=== PATIENT | female | born 1940 | race Caucasian/White ===

== ENCOUNTER → 2022-01-04 | Outpatient (CLI) | payer MEDICARE, OTHER, SELFPAY ==
--- NOTE | 2022-01-04 14:15 | CT_ITS ---
EXAM: CT LEFT UPPER EXTREMITY WITHOUT INTRAVENOUS CONTRAST CLINICAL INDICATION: SHOULDER TRAUMA Fell two weeks ago, pre op shoulder planning. TECHNIQUE: Helically acquired images were obtained of the left upper extremity without intravenous contrast. 2-D reformats were performed by the technologist. This CT exam was performed using one or more of the following dose reduction techniques: automated exposure control, adjustment of the mA and/or kV according to patient size, and/or use of iterative reconstruction technique. This report was created using [employer] technology. RADIATION DOSE: CTDIvol = 23.36 mGy, DLP = 551.57 mGy-cm COMPARISON: None. FINDINGS: BONES/JOINTS: Comminuted fracture of the proximal left humerus. Degenerative findings of the AC joint. Elevated left humeral head with eburnation of the acromion suggest a chronic rotator cuff tear. SOFT TISSUES: Unremarkable. No soft tissue swelling or gas. No radiopaque foreign body. LUNGS AND PLEURAL SPACES: Small left pleural effusion. CT/Extremity Upper without Contra IMPRESSION: 1. Comminuted fracture of the proximal left humerus. 2. Small left pleural effusion. Electronically Signed: Tip Calles MD at 16:38 EDT ,
== END | disposition home or self-care (01) ==
LOC: PSN 14:07 → CT 14:16
PROVIDERS: Visit Provider Student in an Organized Health Care Education/Training Program
DX: Z01.812 Encounter for preprocedural laboratory examination (principal); S42.292A Other displaced fracture of upper end of left humerus, initial encounter for closed fracture; W19.XXXA Unspecified fall, initial encounter; J90 Pleural effusion, not elsewhere classified
CPT/HCPCS: 73200

== ENCOUNTER 2022-01-20 05:27 | Day surgery (SDC) | payer MEDICARE, OTHER, SELFPAY ==
--- NOTE | 2022-01-04 14:20 | EKG12_ITS ---
Test Reason : PREOP Blood Pressure : / mmHG Vent. Rate : 079 BPM Atrial Rate : 074 BPM P-R Int : 000 ms QRS Dur : 082 ms QT Int : 368 ms P-R-T Axes : 000 009 -06 degrees QTc Int : 421 ms Atrial fibrillation Abnormal ECG Confirmed by WERNER ESCALANTE, DIALLO ([id number]), book or script editor MAT MARTINEZ ([id number]) on 01/05/2022 9:59:25 AM Referred By: DARIN Confirmed By:DIALLO CALDERA MD
--- NOTE | 2022-01-04 14:53 | RAD_ITS ---
STUDY: X-RAY CHEST REASON FOR EXAM: Female, 81 years old. PRE OP TECHNIQUE: PA and lateral views of the chest. COMPARISON: None. FINDINGS: There is hyperinflation of the lungs consistent with chronic obstructive lung disease (COPD). There is no demonstrated pleural abnormality. There is moderate cardiac enlargement. Normal mediastinum and floresita. Normal visualized pulmonary arteries. Normal visualized aortic arch and descending thoracic aorta. Normal visualized thoracic spine. Normal visualized ribs, clavicles, and shoulders. There is no demonstrated abnormality of the visualized soft tissue structures of the upper abdomen. RAD/Chest PA and Lateral IMPRESSION: Emphysema without pneumonia or atelectasis. Electronically Signed: Jonatan Romero MD at 15:12 EDT ,
[2022-01-04 15:44] LABS: Absolute Neutrophil Count 4.9 X10^3/uL (2.0-7.7); Basophil# 0.06 X10^3/uL; Basophil% 0.8 % (0-1); Eosinophil# 0.17 X10^3/uL; Eosinophils% 2.2 % (0-5); Hematocrit 32.8 % (37-47); Hemoglobin 9.6 g/dL (12.0-15.0); Lymphocyte % 19.6 % (19-41); Mean Corp Hgb Conc 29.3 g/dL (32-36); Mean Corpuscular Hgb 32.8 pg (27.0-32.0); Mean Corpuscular Volume 111.9 fL (81-99); Mean Platelet Vol. 9.4 fl (6.2-12.0); NRBC Flagged by Analyzer 0 % (0-5); Neutrophil # 4.91 X10^3/uL (2.7-7.7); POSITIVE MORPHOLOGY YES; Platelet Count 358 K/mm3 (150-450); Red Blood Count 2.93 M/mm3 (4.2-5.4); White Blood Count 7.7 K/mm3 (4.4-11.0)
[2022-01-04 15:46] LABS: Differential Indicated SCAN CRITERIA MET
[2022-01-04 16:08] LABS: Anion Gap 5 (5-15); BUN 27 mg/dL (7-18); BUN/Creat Ratio 40.1 RATIO (10-20); Calcium,Total 8.5 mg/dL (8.5-10.1); Chloride 109 mmol/L (98-107); Creatinine, Serum 0.67 mg/dL (0.55-1.02); EST Glomerular Filtration Rate 89 mL/min (>60); Est Glom Filt Rate - Afr Amer 108 mL/min (>60); Glucose 92 mg/dL (74-106); Potassium 4.5 mmol/L (3.5-5.1); Sodium Level 138 mmol/L (136-145)
[2022-01-04 18:30] LABS: Anisocytosis 1+
[2022-01-07 14:26] LABS: Magnesium 2.3 mg/dL (1.6-2.6)
[2022-01-20] VITALS (8 sets, daily range): BP systolic 135–171; BP diastolic 74–103; PULSE 89–110; RESP 14–16; TEMP 36.2–36.8; O2SAT 91–98; BMI 32.8
[2022-01-20 06:06] LABS: INR Fingerstick 1.1; Prothrombin Time Fingerstick 14.3 SEC (11.7-14.9)
[2022-01-20] MEDS: Acetaminophen 500 MG Tablet 1000 MG PO (07:00)
[2022-01-20] MEDS: Gabapentin 600 MG Tablet PO (07:00)
[2022-01-20 07:06] LABS: Bedside Glucose 98 mg/dL (74-106)
[2022-01-20] MEDS: Cefazolin 2 GM in 0.9% Normal Saline 100 ML IV (07:28)
[2022-01-20] MEDS: Lactated Ringers 1,000 ML 15 ML IV (08:28)
--- NOTE | 2022-01-20 08:44 | PCM.DC ---
Discharge Instructions Follow Up Care Test Results: Test results from this visit will be discussed in further detail at your follow-up appointment, if applicable. Discharge Plan Admission Primary Reason for Your Visit: Left shoulder replacement Attending Provider: Osito Farmer Primary Care Provider: Johana Santoro Instructions Additional Instructions / Restrictions: Take antifungal medication and apply powder to left armpit and under left breast as prescribed Discharge Orders/Prescriptions Prescriptions: New nystatin 100,000 unit/gram powder 1 applic topical BID Qty: 15 RF: 0 fluconazole 150 mg tablet 150 mg PO Q3D Qty: 2 RF: 0 Continued acetaminophen [Tylenol] 325 mg Tablet 650 mg PO Q6H PRN (Reason: Pain) RF: 0 lorazepam 0.5 mg Tablet 0.5 mg PO DAILY PRN (Reason: Anxiety) RF: 0 metoprolol tartrate 50 mg Tablet 50 mg PO QHS RF: 0 multivitamin Capsule 1 cap PO DAILY RF: 0 oxycodone 5 mg Tablet 5 mg PO Q6H PRN (Reason: Pain) RF: 0 Held warfarin 5 mg Tablet 5 mg PO DAILY RF: 0 Hold Instructions: Resume on 01/28/22. Referrals / Follow Up: Johana Santoro MD [Primary Care Provider] - Osito Farmer DO [STAFF PHYSICIAN] - 01/26/22 Disposition Disposition (needs filled in before D/C Order can be placed): Home, Self Care
--- NOTE | 2022-01-20 08:45 | PN.ORTHO_ITS ---
Subjective Subjective Patient was brought to the operative suite after interscalene block. General anesthesia was induced and endotracheal tube placed. Patient had a run of A. fib RVR which responded well to IV medication. While the patient was asleep, I examined her left upper extremity, with attention to the left axilla. Severe ca ndidiasis was noted, as well as under the left breast. This was not visualized due to the acute fracture. I made the decision to postpone the procedure until candidiasis is treated. Plan to discharge the patient on oral Diflucan and topical nystatin powder. Patient has been off her Coumadin for 6 days. I am awaiting callback from her primary care physician regarding anticoagulation management, with hopes to reschedule surgery 1 week from today. Objective Data Objective Data Vital Signs: Vital Signs Temp Pulse Resp BP Pulse Ox 98.3 F 101 H 16 148/81 H 98 01/20/22 06:35 01/20/22 06:35 01/20/22 06:35 01/20/22 06:35 01/20/22 06:35 Oxygen Delivery Method Room Air Weight: 156 lb 15.506 oz Body Mass Index (BMI) 32.8 Intake & Output: Intake and Output for Last 24 Hours 01/18/22 01/19/22 01/20/22 23:59 23:59 23:59 Intake Total 110 / 110 Balance 110 / 110 Lab / Micro Data Result Diagrams: 01/04/22 15:06 01/04/22 15:06 Labs: Laboratory Results - last 24 hr 01/20/22 06:00: POC PT 14.3, INR 1.1 01/20/22 06:10: Blood Type AB POSITIVE, Antibody Screen NEGATIVE 01/20/22 06:19: POC Glucose 98 Micro: Microbiology 01/04/22 15:06 Swab (Method) Nasal Screen MRSA/MSSA - Final
[2022-01-20] MEDS: Metoprolol Tartrate 50 MG Tablet PO (09:09)
--- NOTE | 2022-01-20 10:15 | SUR.PHASEII ---
Patient and family educated on discharge and all questions answered. Family to receive call from Dr. Farmer's office regarding blood thinner bridge until surgery. Family agrees and is aware.
--- NOTE | 2022-01-22 07:26 | PCM.OPRPT ---
Report of Operation Date of Procedure: 01/20/22 Description of Surgical Findings:: Preoperative diagnosis: Left four-part proximal humerus fracture Postoperative diagnosis: Left four-part proximal humerus fracture, axillary candidiasis Procedure: None Description of procedure: Patient was seen in the preoperative holding area. All questions were answered to patient satisfaction. Informed consent was confirmed for a left reverse shoulder arthroplasty. She was taken to the preoperative holding area and an interscalene block was administered. Patient tolerated the block well. She was brought to the operative suite at time of her procedure. General anesthesia was induced and endotracheal tube placed. Prior to positioning for surgery, patient went to atrial fibrillation with rapid ventricular response. She responded well to medications after several minutes. Her heart rate had normalized to where she was at upon admission around 100. During this process, I was able to better evaluate her left upper extremity, as she did have a pre-existing fracture. Severe candidiasis was noted in the axillary fold as well as beneath the left breast. Given the infection is a contradiction to surgery, surgery was canceled at this point. Patient was safely extubated in the operative suite and transferred to her gurney and subsequently to PACU in stable condition. Patient was started on p.o. Diflucan and topical nystatin powder. She was advised to remove her sling is much as possible for axillary skin care. She will follow-up with me in the office next Monday for skin check with hopes to reschedule surgery 01/27/2022, given the acuity with the acute fracture.
== END 2022-01-20 10:28 | disposition home or self-care (01) ==
LOC: SDC 05:28 → AC 05:29
PROVIDERS: Anesthesiology; PCP Internal Medicine; Referring Provider Student in an Organized Health Care Education/Training Program; Visit Provider Student in an Organized Health Care Education/Training Program
PROC: (CPT 23472; principal; 2022-01-20 07:00)
DX: I48.91 Unspecified atrial fibrillation (principal); S42.242A 4-part fracture of surgical neck of left humerus, initial encounter for closed fracture; Z96.612 Presence of left artificial shoulder joint; W10.9XXA Fall (on) (from) unspecified stairs and steps, initial encounter; E78.00 Pure hypercholesterolemia, unspecified; Z99.3 Dependence on wheelchair; Z53.09 Procedure and treatment not carried out because of other contraindication; B37.89 Other sites of candidiasis
CPT/HCPCS: 23472; 36415; 36416; 71046; 80048; 82962; 83735; 85025; 85610; 86850; 86900; 86901; 87081; 93005; J7120; J0153; J2405; J3475

== ENCOUNTER 2022-01-27 09:59 | Observation (INO) | payer MEDICARE, OTHER, SELFPAY ==
[2022-01-27] VITALS (18 sets, daily range): BP systolic 108–181; BP diastolic 66–137; PULSE 66–98; RESP 14–18; TEMP 36.2–37.2; O2SAT 95–100; BMI 31.7
[2022-01-27] MEDS: Gabapentin 600 MG Tablet PO (06:31)
[2022-01-27] MEDS: Acetaminophen 500 MG Tablet 1000 MG PO ×3 (06:31→21:44)
[2022-01-27] MEDS: Lactated Ringers 1,000 ML 125 ML IV ×2 (06:31→15:41)
--- NOTE | 2022-01-27 07:30 | SHO_PTH ---
PATIENT: SANDRA RAMON LOC: MS3 U#:[id number] AGE/SX: 81/F ROOM: [facility] RE01/27/[address]: Dr. Osito Farmer DO : 1940 BED: 1 DIS: 01/28/2022 SPEC #: [id number] RECD: 01/27/22 14:12 STATUS: JESSICA REJasiel #: [id number] JESSIE: 01/27/22 07:[address]: Osito Farmer DEPT: SURGICAL PATHOLOGY RECD BY: Zaida Boyd ENTERED: 01/28/22 07:56 SP TYPE: HUMERUS OTHR DR: MD Dr. Vito Subramanian DO Dr. Nana Yaa Koram, MD Tissues: Humerus, NOS Procedures: Decalcification bone/plaque Surgery Specimen Level IV HEADER OPERATION: ERAS, total shoulder replacement, reverse PRE-OP DIAGNOSIS: Four-part fracture of surgical neck of left humerus TISSUE SUBMITTED: Left proximal humerus MICROSCOPIC DIAGNOSIS Left humerus, total shoulder replacement: Severe degenerative joint disease. Consistent with organizing fracture callus. AM:kimberley 02/02/2022 MICROSCOPIC DESCRIPTION Slides are reviewed. GROSS DESCRIPTION Received in fixative is one container labeled with the patient's name and designated left proximal humerus. The specimen consists of a discoid fragment of justice bone measuring 4.5 x 4.5 x 2 cm. The articular surface displays prominent osteophyte formation, eburnation and bone erosion. Also present in the specimen container are multiple irregular fragments of light justice-white bone fragments measuring in aggregate 3.5 x 3 x 0.2 cm. Shift Supervisor sections are submitted in two cassettes as follows: 1??fragments of bone free in container, 2 ? discoid fragment of bone. The blocks are submitted after appropriate decalcification. / AM:kimberley 01/28/2022 TC:5 CPT: 28113, 99113
[2022-01-27 07:40] LABS: INR Fingerstick 1.7; Prothrombin Time Fingerstick 20.1 SEC (11.7-14.9)
[2022-01-27] MEDS: Cefazolin 2 GM in 0.9% Normal Saline 100 ML IV (07:50)
[2022-01-27] MEDS: TXA 1000mg in NS100 100ml (IVPB at Incision) 660 MG IV (08:10)
[2022-01-27 08:45] LABS: Bedside Glucose 98 mg/dL (74-106)
--- NOTE | 2022-01-27 10:14 | PCM.OPRPT ---
Report of Operation Date of Procedure: 01/27/22 Description of Surgical Findings:: Preoperative diagnosis: Left displaced 4 part proximal humerus fracture Postoperative diagnosis: Left displaced 4 part proximal humerus fracture Procedure: Left reverse total shoulder arthroplasty Surgeon: Osito Farmer DO Package Liner: UGO Mcgrath Anesthesia: General endotracheal Anesthesiologist: Dr. Reddy [place]: Justin Azar CRNA Complications: None apparent Drains: None Estimated blood loss: 250 cc Urinary output: None cc IV fluids: 400 cc crystalloid Specimens: None Surgical implants: Tornier perform reversed standard baseplate 25 mm diameter, standard glenosphere cobalt chrome 36 mm diameter. Tornier flex shoulder system reversed tray thickness +6 mm high E centricity, long PTC humeral stem angle 4B 132.5 degree, flex reverse insert thickness +6 mm ultrahigh weight molecular weight polyethylene angle C7 0.5 degree 36 mm diameter. Central screw 30 mm. Peripheral screws x3 22 mm, 26 mm, 14 mm Surgical indications: This is a 81-year-old female who had a fall and sustained a left four-part proximal humerus fracture. She was seen in the emergency department and follow-up in my office. CT was obtained confirming the diagnosis. Given the CT findings and her age, I recommended a reverse shoulder arthroplasty. We discussed nonoperative management versus reverse shoulder arthroplasty. The risk, benefits, alternatives the procedure was reviewed with the patient and she agreed to proceed. Risks included but were not limited to bleeding, infection, instability, loss of life or limb, risk of anesthesia, neurovascular injury, persistent pain, stiffness, prolonged immobilization, need for additional surgery, loosening of orthopedic hardware, nonhealing of tuberosities. She expressed understanding and wished to proceed with surgery. She was cleared by her primary care physician. Her Coumadin was held 5 days prior to the procedure. Surgical details: Patient arrived to [facility] morning of the procedure and was greeted by the same day surgery staff. Prior to her procedure, I greeted the patient in the preoperative holding area I identified the patient by name, record number, and date of . Informed consent was confirmed. The operative extremity was marked. Her axilla was reexamined due to cancellation of surgery 1 week ago due to candidiasis, which is resolved with oral Diflucan and topical nystatin powder. All questions were answered to patient satisfaction. Patient was also seen by anesthesia staff. Interscalene block was administered prior to procedure for postoperative analgesia. At time of her procedure, patient was brought to the operative suite and positioned supine on a standard table with a beachchair attachment. General anesthesia was induced after all bony prominences were well-padded. Endotracheal tube was placed. After adequate anesthesia and securing the tube, we prepared the patient to be positioned in the beachchair position. A well-padded mill operator head was applied. The nonoperative extremity was placed in a well arm larkin. She was then brought into the beachchair position after we confirmed an appropriate blood pressure. We then spun the bed 45 degrees. The operative extremity was then prepared. In the butterfly wing of the bed was removed and a well-padded torso strap was applied to secure the patient to the bed. The operative extremity was now free. We then prepped and draped the left upper extremity in normal, sterile orthopedic fashion. We then performed a timeout with all parties in attendance in agreement with the side, site, and operation be performed. 2 g Ancef was administered prior to incision by anesthesia staff, as well as 1 g TXA IV. No concerns were voiced and we elected to proceed. I first marked a standard deltopectoral incision just lateral to the coracoid process in line with the long axis of the humerus. Skin was sharply incised with 10 blade scalpel. I then dissected bluntly through the subcutaneous layers and found the fat stripe between the deltoid and pectoralis major. The cephalic vein was then identified and protected. It was retracted laterally with the deltoid. I then bluntly dissected underneath the deltoid with a Hartmann elevator. This quickly identified the fracture site. The upper 1 cm of the pectoralis major was released. I then identified the long head of the biceps tendon in the intertubercular groove. This was tenodesed in situ with #2 FiberWire. I then amputated the biceps proximal to the tenodesis site and followed the tendon to the supraglenoid tubercle where it was amputated. This identified the lesser and greater tuberosities. I tagged the supraspinatus and subscapularis respectively with #2 FiberWire suture for later repair. The fracture appeared to be significantly healed at this point. The greater tuberosity appeared to have healed with some soft callus still present into a near anatomic position. . The lesser tuberosity had healed to this large lateral metaphyseal fragment. I performed a subscapularis peel with the Bovie cautery and tagged this. I then made a anatomic neck cut of the cartilaginous surface of the humeral head. I made an anatomic neck cut utilizing a sagittal saw at this point. The medial calcar appeared to be intactThere was significant metaphyseal bone remaining in this lateral fragment which was debrided with a rongeur. I then placed retractors around the posterior and anterior glenoid to expose the glenoid. Glenoid labrum was removed with Bovie cautery protecting the axillary nerve, which was in close proximity to the glenoid neck. I then used the targeting guide to place a central drill pen into the glenoid vault. I achieved bicortical fixation. Guide was removed and pin was analyzed and compared to preoperative planning. It appeared to be in appropriate position. This was reamed about 2 mm deep. We then remove the reamer and used the cannulated drill for the central 30 mm screw. Pin was removed. Post and baseplate was assembled on the back table. We then inserted the baseplate and central screw the assembled baseplate to an appropriate depth. A [place] was used to confirm depth. Locking screws then were placed in the most superior and inferior holes with good purchase. An additional anterior screw was placed with excellent bicortical fixation.. The baseplate had excellent purchase and the entire scapula would rotate with rotation of the baseplate. We then impacted the 36 mm glenosphere. Locking screw was then placed in the centering hole of the glenosphere with excellent purchase. We then removed retractors and turned our attention to the humerus. The calcar appeared to be intact. We utilized 30 degrees retroversion for placement of our broaches. We were able to place a size 4 broach with good interference fit in the metaphysis. We selected this as our final size. I copiously irrigated the canal. Broach was placed on hand and then impacted to an appropriate depth. I then trialed with a standard poly and brought through a range of motion. No significant impingement or instability was noted. Trials were removed and final standard polyethylene was placed. I then copiously irrigated the wound with Betadine solution and normal saline solution. Hemostasis was excellent. The axillary nerve was visualized and appeared to be intact. We then copiously irrigated the wound with normal saline solution. We reapproximated the interval with 0 Vicryl suture. Subcutaneous layers were reapproximated with 3-0 Monocryl suture. Skin was finally running 3 oh V-Loc Monocryl suture and Dermabond. A sterile silver Mepilex dressing was applied. Patient was then placed in an abduction pillow sling. Patient tolerated procedure well without complication. She was positioned back in the supine position extubated in the operative suite. She was transferred to the [place] and subsequently to PACU in stable condition. Intraoperative medications: 2 g Ancef IV, 1 g TXA IV Post Operative Plan: Due to her medical comorbidities and age, patient will be placed in observation overnight. We will obtain a hospitalist consult for her multiple comorbidity management. Weightbearing: Nonweightbearing left upper extremity, okay for pendulums. Range of motion of wrist elbow and hand as tolerated. Antibiotics: 2 g Ancef IV prior to incision, Ancef x23 hours postop DVT Prophylaxis: Restart Coumadin postoperative day #1 [place]: None Dressing: Maintain silver dressing x7 days. Okay to shower dressing on started on day 4 X-Rays: 2 weeks postop in the office Pain Medication: Percocet Rx upon discharge Follow-up: 2 weeks post-operatively with me in the office
--- NOTE | 2022-01-27 10:40 | RAD_ITS ---
STUDY: X-RAY - LEFT SHOULDER REASON FOR EXAM: Female, 81 years old. Post op -- AP and Lateral X-Ray of operative shoulder in PACU TECHNIQUE: 2 view(s) of the shoulder. COMPARISON: None. FINDINGS: The patient is status post left total reverse shoulder replacement. There is good alignment. RAD/Shoulder min 2 Views IMPRESSION: Status post left total shoulder replacement. There is good alignment. Postoperative soft tissue changes. Electronically Signed: Phong Tierney MD at 11:09 EDT ,
--- NOTE | 2022-01-27 11:17 | SUR.PHASEI ---
ULTRA SLING LEFT ARM
[2022-01-27] MEDS: Cefazolin 1 GM/50 ML BAG IV ×2 (14:50→23:33)
--- NOTE | 2022-01-27 14:59 | NURSING ---
okay for primary visitor to stay overnight per SBkelly RN
[2022-01-27] MEDS: Ensure Surgery 237 ML LIQUID PO (16:59)
[2022-01-27] MEDS: oxyCODONE 5 MG Tablet 2.5 MG PO (18:03)
--- NOTE | 2022-01-27 20:10 | PN.HOSP_ITS ---
Subjective Subjective Patient was seen and examined today at the request of orthopedic surgery, she underwent a left reverse total shoulder arthroplasty today due to a left displaced four-part proximal humerus fracture. Medical problems in this patient consists of chronic A. fib on chronic anticoagulation, essential hypertension, and osteoarthritis, patient complains at this time of surgical site pain and nausea, she does not complain of any shortness of breath or chest discomfort. Objective Data Objective Data Vital Signs: Vital Signs Temp Pulse Resp BP Pulse Ox 97.6 F L 76 18 126/72 H 98 01/27/22 16:45 01/27/22 16:45 01/27/22 16:45 01/27/22 16:45 01/27/22 19:47 Oxygen Flow Rate (L/min) 4 Oxygen Delivery Method Room Air Weight: 71.305 kg Body Mass Index (BMI) 31.7 Intake & Output: Intake and Output for Last 24 Hours 01/25/22 01/26/22 01/27/22 23:59 23:59 23:59 Intake Total 1609 / 1609 Output Total 500 / 500 Balance 1109 / 1109 Lab / Micro Data Labs: Laboratory Results - last 24 hr 01/27/22 06:09: POC PT 20.1 H, INR 1.7 01/27/22 06:20: Blood Type AB POSITIVE, Antibody Screen NEGATIVE 01/27/22 06:23: POC Glucose 98 Radiography Diagnostic Testing: Radiology Impression Shoulder X-Ray 01/27/22 10:40 IMPRESSION: Status post left total shoulder replacement. There is good alignment. Postoperative soft tissue changes. Electronically Signed: Phong Tierney MD at 11:09 EDT , Physical Exam Const alert, oriented x3, no apparent distress, average body habitus and healthy appearing Constitutional Narrative: Patient appears her stated age General Appearance: cooperative, well kempt and well developed Orientation / Consciousness: awake, oriented to person, oriented to place and or iented to time HEENT normocephalic, head/scalp atraumatic and moist oral mucous membranes Head and Scalp: normocephalic Eyes PERRL, EOMs intact bilaterally and conjunctivae normal Neck nuchal rigidity, supple, no JVD and thyroid normal General: trachea midline Resp normal respiratory effort, no retractions, no use of accessory muscles and clear to auscultation bilaterally Auscultation: Negative for rales, rhonchi or wheezes Cardio no murmurs, no rub and no gallops Cardio Narrative: Heart rate and rhythm is irregular, patient is not tachycardic or bradycardic GI normal to inspection, nondistended, normoactive bowel sounds, soft to palpation, non-tender and non-distended Extremity Extremity Narrative: Patient's left shoulder is in a shoulder immobilizer Skin no rashes or lesions noted General Skin Exam: no breakdown Neuro oriented x3, CN's II-XII intact bilaterally, no focal motor deficits and no sensory deficits noted Sensorium / Orientation: awake and alert Speech: speech normal Psych affect normal Assessment & Plan Assessment/Plan (1) Atrial fibrillation: PLAN: 1. Permanent atrial fibrillation-patient is currently on warfarin, she will continue this at home at after she is discharged #2 essential hypertension-patient is currently on metoprolol #3 status post left reverse total shoulder arthroplasty secondary to left displaced four-part proximal humerus fracture-postop day 0, patient will be seen by PT and OT, orthopedic surgery is participating in her care #4 chronic anxiety-patient takes Ativan as needed for anxiety Charges/Coding Visit Charges Inpatient E&M: 59449 Subs Hosp L2
[2022-01-27] MEDS: 0.9% NaCl Peripheral Flush Adult/Peds IV (20:29)
[2022-01-27] MEDS: Ondansetron 4 MG/2 ML Vial IV (20:29)
[2022-01-27] MEDS: Senna/Docusate Sodium 1 Tablet 2 TABLET PO (21:44)
[2022-01-27] MEDS: Metoprolol Tartrate 50 MG Tablet PO (21:44)
[2022-01-27] MEDS: oxyCODONE 5 MG Tablet PO (21:45)
[2022-01-27] MEDS: Nystatin Powder 15gm Bottle 1 APPLIC TOPICAL (21:45)
[2022-01-27] MEDS: LORazepam 0.5 MG Tablet PO (23:40)
[2022-01-28] MEDS: Lactated Ringers 1,000 ML 125 ML IV
[2022-01-28 00:25] VITALS: BP 125/87; PULSE 90; RESP 16; TEMP 37.3; O2SAT 96
[2022-01-28] MEDS: oxyCODONE 5 MG Tablet PO ×3 (02:21→12:22)
[2022-01-28 04:30] VITALS: BP 125/73; PULSE 94; RESP 16; TEMP 37.1; O2SAT 97
[2022-01-28 05:22] LABS: Hematocrit 33.6 % (37-47); Hemoglobin 10.6 g/dL (12.0-15.0); Mean Corp Hgb Conc 31.5 g/dL (32-36); Mean Corpuscular Hgb 32.1 pg (27.0-32.0); Mean Corpuscular Volume 101.8 fL (81-99); Mean Platelet Vol. 10.7 fl (6.2-12.0); Platelet Count 180 K/mm3 (150-450); RBC Distribution Width CV 14.3 % (11.6-14.6); RBC Distribution Width SD 54.2 fl (35.1-43.9); White Blood Count 9.1 K/mm3 (4.4-11.0)
[2022-01-28 05:50] LABS: Anion Gap 5 (5-15); BUN 18 mg/dL (7-18); BUN/Creat Ratio 26.9 RATIO (10-20); Calcium,Total 8.3 mg/dL (8.5-10.1); Chloride 104 mmol/L (98-107); Creatinine, Serum 0.67 mg/dL (0.55-1.02); EST Glomerular Filtration Rate 90 mL/min (>60); Est Glom Filt Rate - Afr Amer 109 mL/min (>60); Estimated Creatinine Clearance 49.67 ml/min; Glucose 130 mg/dL (74-106); Potassium 4.3 mmol/L (3.5-5.1); Sodium Level 136 mmol/L (136-145)
[2022-01-28] MEDS: Acetaminophen 500 MG Tablet 1000 MG PO ×2 (06:09→13:17)
--- NOTE | 2022-01-28 07:48 | PCM.DC.SUM ---
Providers Date of Admission: 01/27/22 Primary Care Physician: Dr. Johana Santoro MD Consultations 01/27/22 09:55 Consult: Hospitalist Routine Consulting Provider: Vito Davis Reason for Consult: S/p left reverse shoulder arthroplasty, medical management EMERGENT Consult: No MD Notified: Yes Date Notified: 01/27/22 Time Notified: 20:00 Method of Notification: Text Diagnosis Discharge Diagnosis (1) Atrial fibrillation: Status: Acute Code(s): I48.91 - Unspecified atrial fibrillation Plan: POD#1 s/p left reverse shoulder arthroplasty for fracture - Pain control - Medicine following for medical management - PT/OT -nonweightbearing left upper extremity - DVT PPX -Coumadin restarted today, SCDs, mobilization -Plan for discharge home today Medications at Discharge Home Medications acetaminophen [Tylenol] 650 mg PO Q6H PRN 01/07/22 lorazepam 0.5 mg PO DAILY PRN 01/07/22 metoprolol tartrate 50 mg PO QHS 01/07/22 multivitamin 1 cap PO DAILY 01/07/22 warfarin 5 mg PO DAILY 01/07/22 fluconazole 150 mg PO Q3D #2 tab 01/20/22 nystatin 1 applic TOPICAL BID #15 g 01/20/22 nystatin 1 applic TOPICAL BID #30 g 01/27/22 acetaminophen 1,000 mg PO Q8 7 Days #42 tab 01/28/22 oxycodone 10 mg PO Q6H PRN 7 Days #42 tab 01/28/22 Hospital Course Summary of Care Provided Minutes Spent on Discharge: 20 Hospital Course: Patient underwent uncomplicated left reverse shoulder arthroplasty for fracture 01/27/2022. She was placed in observation overnight given her age and comorbidities. Pain was adequately controlled postoperatively. She worked well with physical occupational therapies. Hospitalist was consulted for medical management throughout her stay. No medical or surgical complications were encountered. She was safely discharged to home on postoperative day #1. Physical Exam Narrative General - A&Ox3, NAD. VSS/AF. Left upper Extremity - SILT & 5/5 in radial, ulnar, musculocutaneous, axillary, and median nerve distributions. Radial, ulnar pulses 2+. Compartments soft and compressible. BCR in finger tips. Incisional dressing C/D/I. Weight / BMI Weight Weight: 157 lb 3.2 oz Body Mass Index (BMI) 31.7 ABG / Lab / Microbiology Data Result Diagrams: 01/28/22 04:46 01/28/22 04:46 Laboratory: Laboratory Results - last 24 hr 01/27/22 06:20: Blood Type AB POSITIVE, Antibody Screen NEGATIVE 01/27/22 06:23: POC Glucose 98 01/28/22 04:46: WBC 9.1, RBC 3.30 L, Hgb 10.6 L, Hct 33.6 L, MCV 101.8 H, MCH 32.1 H, MCHC 31.5 L, RDW Std Deviation 54.2 H, RDW Coeff of Luis 14.3, Plt Count 180, MPV 10.7 01/28/22 04:46: Sodium 136, Potassium 4.3, Chloride 104, Carbon Dioxide 27.0, Anion Gap 5, BUN 18, Creatinine 0.67, Estim Creat Clear Calc 49.67, Est GFR (MDRD) Af Amer 109, Est GFR (MDRD) Non-Af 90, BUN/Creatinine Ratio 26.9 H, Glucose 130 H, Calcium 8.3 L Radiography Diagnostic Testing: Radiology Impression Shoulder X-Ray 01/27/22 10:40 IMPRESSION: Status post left total shoulder replacement. There is good alignment. Postoperative soft tissue changes. Electronically Signed: Phong Tierney MD at 11:09 EDT , Meaningful Use Info Meaningful Use Diagnoses (Choose all that apply): None applicable Discharge Plan Admission Admit Date/Time: 01/27/22 09:59 Primary Reason for Your Visit: left shoulder replacement Attending Provider: Osito Farmer Primary Care Provider: Johana Santoro Consulting Providers: Vito Davis ; Lisa Vaughan Instructions Additional Instructions / Restrictions: Follow preprinted instructions from your surgeons office. Discharge Orders/Prescriptions Prescriptions: New nystatin 100,000 unit/gram powder 1 applic topical BID Qty: 30 RF: 0 acetaminophen 500 mg Tablet 1,000 mg PO Q8 7 Days Qty: 42 RF: 0 oxycodone 5 mg tablet 10 mg PO Q6H PRN (Reason: pain) 7 Days Qty: 42 RF: 0 Continued lorazepam 0.5 mg Tablet 0.5 mg PO DAILY PRN (Reason: Anxiety) RF: 0 warfarin 5 mg Tablet 5 mg PO DAILY RF: 0 Hold Instructions: Resume on 01/28/22. metoprolol tartrate 50 mg Tablet 50 mg PO QHS RF: 0 multivitamin Capsule 1 cap PO DAILY RF: 0 nystatin 100,000 unit/gram powder 1 applic topical BID Qty: 15 RF: 0 fluconazole 150 mg tablet 150 mg PO Q3D Qty: 2 RF: 0 Held acetaminophen [Tylenol] 325 mg Tablet 650 mg PO Q6H PRN (Reason: Pain) RF: 0 Hold Instructions: Resume on 02/04/22. Discontinued oxycodone 5 mg Tablet 5 mg PO Q6H PRN (Reason: Pain) RF: 0 Other Ambulatory Orders: Type & Screen - PAT ONLY (Routine) Timeframe: [id number] Facility[facility] - Location: Laboratory Ordered By: Dr. Osito Farmer Referrals / Follow Up: Johana Santoro MD [Primary Care Provider] - Osito Farmer DO [STAFF PHYSICIAN] - 02/09/22 Disposition Disposition (needs filled in before D/C Order can be placed): Home, Self Care
[2022-01-28 08:30] VITALS: BP 96/66; PULSE 79; RESP 16; TEMP 36.4; O2SAT 94
[2022-01-28] MEDS: Aspirin E.C. 81 MG Tablet PO (08:32)
[2022-01-28] MEDS: Ensure Surgery 237 ML LIQUID PO (08:33)
[2022-01-28] MEDS: Senna/Docusate Sodium 1 Tablet 2 TABLET PO (08:33)
[2022-01-28] MEDS: Nystatin Powder 15gm Bottle 1 APPLIC TOPICAL (08:33)
--- NOTE | 2022-01-28 09:52 | CASEMGMT ---
Addendum entered by Mel Griffith 01/28/22 11:16: Received returned call from Karie at [facility]. States they do the therapy portion of care and [facility] provides the SN. She states to fax all info to her and she will forward what is needed to [facility]. Faxed referral including dc instructions and summary at this time. Original Note: ESEQUIEL TREVIÑO Assessment: Face to Face with pt for initial transition planning/care coordination assessment. ESEQUIEL TREVIÑO introduced self and role at [facility], pt voices understanding and consents to assessment. Pt is A/O x4 and answers all questions appropriately at this time. Pt sitting up in chair with dtr Maddi at bedside. Care providers, pharmacy, and demographics verified/updated. Admitting Dx: humerus fx, left PCP:Yvan Specialists:Marleny, rea; cardio but pt does not know who. Preferred Pharmacy: [facility] Insurance: [employer], [employer] Prescription Benefit: yes LW/HPOA: Pt denies having a LW/DPOA and denies need for info regarding AD. LNOK: Dot Robert, dil; Rommel Robert, son; Maddi, dtr; Vonnie Steele, dtr Living Arrangements: Pt lives in a mobile home alone with no steps to enter. This mobile home is on the same land that pt son and family lives on. Pt reports she was I in ADL's prior to this fall. Transportation: Pt hires drivers for transportation. DME/HHC/SNF: Pt has a cane and FWW, grab bars in the bathroom and a BSC that she does not use. Pt states she is currently receiving SN and PT services through [facility]. Asked if the SN was through [facility] and she states it is not. Pt has been to [facility] in the past. Pt dtr Vonnie Steele was on the phone with dtr Maddi who is present at bedside. ESEQUIEL TREVIÑO spoke wt Vonnie as she is the personal injury law specialist for dc plans. She is agreeable to the plan of going home with resuming HHC. Pt will have family with her 24/7 for 3-4 weeks. Pt states no concerns with going home at time of dc. Pt states no further concerns/needs. CM to follow. Advised pt to ask CM if any further question/concerns/needs arise, voices understanding. Pt Goal: Home with resumption of HHC Plan: Home with resumption of HHC TC to [facility], left vm requesting returned call.
--- NOTE | 2022-01-28 10:36 | PN.HOSP_ITS ---
Subjective Subjective Patient seen and examined. She complained of pain in her left shoulder. She had no other complaints. Today is POD 1 for left shoulder reverse arthroplasty. Objective Data Objective Data Vital Signs: Vital Signs Temp Pulse Resp BP Pulse Ox 97.5 F L 79 16 96/66 94 01/28/22 08:30 01/28/22 08:30 01/28/22 08:30 01/28/22 08:30 01/28/22 08:30 Oxygen Flow Rate (L/min) 4 Oxygen Delivery Method Room Air Weight: 157 lb 3.2 oz Body Mass Index (BMI) 31.7 Intake & Output: Intake and Output for Last 24 Hours 01/26/22 01/27/22 01/28/22 23:59 23:59 23:59 Intake Total 2609 / 2609 987.5 / 987.5 Output Total 500 / 700 600 / 600 Balance 2109 / 1909 387.5 / 387.5 Lab / Micro Data Result Diagrams: 01/28/22 04:46 01/28/22 04:46 Labs: Laboratory Results - last 24 hr 01/28/22 04:46: WBC 9.1, RBC 3.30 L, Hgb 10.6 L, Hct 33.6 L, MCV 101.8 H, MCH 32.1 H, MCHC 31.5 L, RDW Std Deviation 54.2 H, RDW Coeff of Luis 14.3, Plt Count 180, MPV 10.7 01/28/22 04:46: Sodium 136, Potassium 4.3, Chloride 104, Carbon Dioxide 27.0, An ion Gap 5, BUN 18, Creatinine 0.67, Estim Creat Clear Calc 49.67, Est GFR (MDRD) Af Amer 109, Est GFR (MDRD) Non-Af 90, BUN/Creatinine Ratio 26.9 H, Glucose 130 H, Calcium 8.3 L Radiography Diagnostic Testing: Radiology Impression Shoulder X-Ray 01/27/22 10:40 IMPRESSION: Status post left total shoulder replacement. There is good alignment. Postoperative soft tissue changes. Electronically Signed: Phong Tierney MD at 11:09 EDT , Physical Exam Const alert, oriented x3 and no apparent distress Exam Limitations: no limitations HEENT head/scalp atraumatic and moist oral mucous membranes Head and Scalp: normocephalic Eyes PERRL, EOMs intact bilaterally and conjunctivae normal Neck no lymphadenopathy and supple Resp normal respiratory effort, no retractions, no use of accessory muscles and clear to auscultation bilaterally Cardio regular rate, regular rhythm, S1 normal heart sound, S2 normal heart sound and no murmurs GI normal to inspection, nondistended, normoactive bowel sounds, soft to palpation, non-tender and non-distended Extremity normal to inspection Extremity Narrative: LUE in a shoulder sling. Peripheral Pulses: Yes pulses 2+ throughout Skin no rashes or lesions noted Neuro oriented x3 and CN's II-XII intact bilaterally Sensorium / Orientation: awake and alert Psych affect normal Assessment & Plan Assessment/Plan (1) Atrial fibrillation: PLAN: #Left shoulder and proximal humeral fracture due to mechanical fall * s/p left reverse total shoulder arthroplasty * today is POD 1 * PT/OT on board * orthopedics is primary * on PO tylenol, PO oxycodone and IV morphine prn for pain. * #Atrial fibrillation * rate controlled. On coumadin, with goal INR of 2-3 * on metoprolol * #Anxiety: on ativan prn. Patient stable for discharge from hospitalist standpoint. Thank you for the courtesy of the consult. Please do not hesitate to contact hospitalist team with any questions or concerns. Charges/Coding Visit Charges Inpatient E&M: 88411 Subs Hosp L2
[2022-01-28 12:21] VITALS: BP 108/70; PULSE 84; RESP 16; TEMP 37; O2SAT 97
== END 2022-01-28 14:19 | disposition home health service (06) ==
LOC: SDC 15:06 → MS3 15:06
PROVIDERS: Admitting Provider Student in an Organized Health Care Education/Training Program; PCP Internal Medicine; Visit Provider Student in an Organized Health Care Education/Training Program
PROC: (CPT 23472; principal; 2022-01-27 07:00)
DX: S42.242A 4-part fracture of surgical neck of left humerus, initial encounter for closed fracture (principal); I48.21 Permanent atrial fibrillation; Z79.01 Long term (current) use of anticoagulants; W10.9XXA Fall (on) (from) unspecified stairs and steps, initial encounter; M19.90 Unspecified osteoarthritis, unspecified site; I10 Essential (primary) hypertension; R11.0 Nausea; Z79.899 Other long term (current) drug therapy; Y93.9 Activity, unspecified; Y99.9 Unspecified external cause status; Y92.9 Unspecified place or not applicable
CPT/HCPCS: 23472; 01638; 64415; 36415; 36416; 73030; 80048; 82962; 85027; 85610; 86850; 86900; 86901; 88305; 88311; 96361; 96365; 96366; 96375; 97166; 99218; 99251; C1713; C1776; J7120; A4216; G0378; G0463; J2405; J3475